=== PATIENT | female | born 1980 | race Caucasian/White ===

== ENCOUNTER 2016-11-18 18:36 | Emergency (ER) | payer MEDICAID ==
[~2016-11-18] VITALS: Ht 157.5 cm; Wt 59.0 kg
[2016-11-18 19:54] LABS: APPEARANCE,URINE Clear (CLEAR); BILIRUBIN,URINE Negative (NEGATIVE); BLOOD, URINE Negative Ery/uL (NEGATIVE); COLOR,URINE Yellow (YELLOW); KETONES,URINE Trace (NEGATIVE); LEUKOCYTE ESTERASE ,URINE Negative (NEGATIVE); NITRITE, URINE Negative (NEGATIVE); PH,URINE 5.5 (5.0-8.0); PROTEIN,URINE Trace mg/dl (NEGATIVE); UGLUCOSE Negative (NEGATIVE); UROBILINOGEN,URINE 0.2 EU/dL (0.2)
[2016-11-18 19:56] LABS: PREGNANCY TEST URINE QUAL NEGATIVE (NEGATIVE)
[2016-11-18 20:03] LABS: BASOPHILS % (AUTO) 0.3 % (0.0-2.0); EOSINOPHILS # (AUTO) 0.1 /CMM (0.0-0.7); EOSINOPHILS % (AUTO) 0.5 % (0.0-6.0); HEMATOCRIT 43 % (33-45); HEMOGLOBIN 13.7 g/dL (11.5-14.8); LYMPHOCYTES # (AUTO) 1.5 /CMM (0.8-4.8); LYMPHOCYTES % (AUTO) 9.9 % (20.0-44.0); MEAN CORPUSCULAR HEMOGLOBIN 27 PG (26.0-33.0); MEAN CORPUSCULAR HGB CONC 32 g/dl (31.0-36.0); MEAN CORPUSCULAR VOLUME 84 fL (82-100); MONOCYTES # (AUTO) 0.5 /CMM (0.1-1.30); MONOCYTES % (AUTO) 3.2 % (2.0-12.0); NEUTROPHILS # (AUTO) 12.9 /CMM (1.8-8.9); NEUTROPHILS % (AUTO) 86.1 % (43.0-81.0); PLATELET COUNT (AUTO) 231 /CMM (150-450); RDW COEFFICIENT OF VARIATION 13.5 (11.5-15.0); RED BLOOD CELL COUNT(AUTO) 5.17 MIL/uL (4.0-5.2)
[2016-11-18 20:05] LABS: BACTERIA,URINE Few /HPF (None Seen); MUCUS,URINE Moderate /LPF (None Seen); RBC,URINE 0-2 /HPF (0-2); SQUAMOUS EPITHELIAL CELL,UR Many /HPF (None Seen); URINE AMORPHOUS URATE Few /HPF (None Seen)
--- NOTE | 2016-11-18 20:09 | NUR ---
US IS AT THE BEDSIDE.
[2016-11-18 20:14] LABS: CALCIUM, SERUM 8.9 mg/dL (8.5-10.1); CREATININE 0.8 mg/dL (0.6-1.3); POTASSIUM 4.2 mmol/L (3.5-5.1)
--- NOTE | 2016-11-18 20:16 | NUR ---
PT GETTING ULTRASOUND FIRST.
[2016-11-18 20:17] LABS: PROTHROMBIN TIME 10.4 SECS (9.5-12.7)
[2016-11-18] MEDS ORDERED: IV NS 0.9% 250 ML IV ONE (20:20)
[2016-11-18] MEDS ORDERED: CT SWABBABLE VALVE TRANS SET 1 EA INFUS.SET MC ONE (20:20)
[2016-11-18] MEDS ORDERED: IOHEXOL-300 100 ML VIAL IV ONE (20:20)
--- NOTE | 2016-11-18 20:32 | NUR ---
US IS FINISHED.
--- NOTE | 2016-11-18 21:37 | NUR ---
PT APPEARS TO BE RESTING COMFORTABLY WITH NO S/S OF PAIN OR DISTRESS.
--- NOTE | 2016-11-18 21:40 | NUR ---
JOSEY العراقي IS AT THE BEDSIDE SPEAKING TO THE PT RE: ADMISSION.
[2016-11-18] MEDS ORDERED: METRONIDAZOLE 500MG/ NS 100ML 100 ML IV ONE (21:55)
[2016-11-18] MEDS ORDERED: IV SET PRIMARY PUMP SET 1 EA INFUS.SET MC ONE ×3 (21:55→22:39)
--- NOTE | 2016-11-18 21:59 | NUR ---
CALLING REPORT TO MS NURSE.
[2016-11-18] MEDS ORDERED: FLAGYL/NS RTU 500 MG/100 ML PIGGYBACK IV ONE (22:00)
--- NOTE | 2016-11-18 22:00 | NUR ---
REPORT GIVEN TO [facility] FOR DEEDEE. ENDORSED LEVOQUIN 500MG IVPB TO [facility]. ORDER IN CHART.
[2016-11-18] MEDS: LEVOFLOXACIN 500 MG /D5W 100ML 500 MG/100 ML PIGGYBACK IV ONE ×2 (22:03→23:10)
--- NOTE | 2016-11-18 22:16 | NUR ---
CALLED , LEFT MESSAGE ON VOICEMAIL
[2016-11-18] MEDS ORDERED: IV SET PRIMARY 1 EA INFUS.SET MC ONE (22:28)
[2016-11-18] MEDS ORDERED: IV NS 0.9% 1,000 ML ONE (22:29)
[2016-11-18] MEDS ORDERED: IV D5/0.45 NACL 1,000 ML IV ONE ×2 (22:29→22:30)
[2016-11-18] MEDS ORDERED: IV NS 0.9% 1,000 ML BAG IV ONE (22:30)
[2016-11-18] MEDS ORDERED: LEVOFLOXACIN 500 MG /D5W 100ML 100 ML IV ONE (22:39)
[2016-11-19 00:10] VITALS: BP 104/66
--- NOTE | 2016-11-19 00:14 | NUR ---
IV removed. Catheter intact and site benign. Pressure and 4x4 applied to site. No bleeding noted.Patient discharged to home in stable condition. Written and verbal after care instructions given. Patient verbalizes understanding of instruction AND RX. PT AMBULATED OUT WITH A STEADY GAIT. VSS.
== END 2016-11-18 22:09 | disposition other institution (70) ==
LOC: ER 18:38 → MEDSG2 21:57 → UNDOADMIN 21:57
DX: K52.9 Noninfective gastroenteritis and colitis, unspecified (principal)
CPT/HCPCS: 36415; 74178; 76856; 80048; 81001; 84703; 85025; 85730; 87040 ×2; 96365; 96368; 99285; A4606; J1956 ×2; J3490 ×3; J7030; J7050; Q9967; Z7610; 81000-TC; 87081-TC